=== PATIENT | male | born 1945 | race Caucasian/White ===

== ENCOUNTER → 2021-06-03 14:06 | Outpatient (CLI) | payer MEDICARE, SELFPAY ==
[2021-06-03 14:21] LABS: Basophils # 0.1 K/mm3 (0-0.2); Basophils % 0.7 % (0.1-2.0); Eosinophils # 0.1 K/mm3 (0.0-0.4); Hematocrit 51.9 % (42.0-52.0); Hemoglobin 16.7 g/dL (14.1-18.0); Lymphocytes # 2.3 K/mm3 (0.7-4.5); Lymphocytes % 28.3 % (10-50); Mean Corpuscular HGB Conc 32.2 g/dL (31.8-35.4); Mean Corpuscular Hemoglobin 32.6 pg (27.0-31.2); Mean Corpuscular Volume 101.4 fl (80-94); Mean Platelet Volume 8.5 fl (7.4-10.4); Monocytes # 0.7 K/mm3 (0.1-1.0); Monocytes % 9.1 % (1.7-9.3); Neutrophils % 60.9 % (37.0-80.0); Platelet Count 328 K/mm3 (142-424); Red Blood Count 5.11 M/mm3 (4.60-6.20); Red Cell Distribution Width 14.3 % (11.5-17.5); White Blood Count 8.1 K/mm3 (4.8-10.8)
[2021-06-03 14:22] LABS: Chloride 106 mmol/L (98-107); Potassium 4.8 mmoL/L (3.5-5.1); Sodium 139 mmol/L (136-145)
[2021-06-03 14:24] LABS: Alanine Aminotransferase 11 U/L (12-78); Aspartate Amino Transferase 24 U/L (17-59); Blood Urea Nitrogen 18 mg/dl (9-20); Estimated Glomerular Filt Rate 49 ml/min (>60); GFR (African American) 59 ML/MIN (>60)
[2021-06-03 14:25] LABS: Albumin Level 3.7 g/dl (3.5-5.0); Albumin/Globulin Ratio 1.3 (1.1-1.8); Alkaline Phosphatase 59 U/L (38-126); Anion Gap 12.8 mEq/L (5-15); Bilirubin,Total 0.5 mg/dl (0.2-1.3); Calcium 9.1 mg/dl (8.4-10.2); Carbon Dioxide 25 mmol/L (22.0-30.0); Cholesterol 177 mg/dl (140-200); Globulin 2.8 g/dL (1.3-3.2); Glucose 98 mg/dl (74-100); Total Protein,Serum 6.5 g/dl (6.3-8.2); Triglycerides 148 mg/dl (30-150); VLDL Cholesterol 30 mg/dL (0-40)
[2021-06-03 14:26] LABS: Chol/HDL Ratio 3.3 (1-3.5); HDL Cholesterol 53 mg/dl (40-60)
[2021-06-03 14:56] LABS: Thyroid Stimulating Hormone 1.35 uIU/mL (0.465-4.68)
[2021-06-03 14:57] LABS: Hemoglobin A1C 6.1 % (4.0-6.0)
[2021-06-03 16:26] LABS: Microalbumin < 6.000 mg/L (0-16.7)
[2021-06-03 16:46] LABS: Creatinine,Urine Random 245 mg/dL (Not Estab.)
[2021-06-07 01:09] LABS: Testosterone,Free 8.1 pg/mL (6.6-18.1)
== END ==
PROVIDERS: Visit Provider Family Medicine
DX: E11.9 Type 2 diabetes mellitus without complications (principal); I10 Essential (primary) hypertension; Z87.898 Personal history of other specified conditions
CPT/HCPCS: 80053; 80061; 82043; 82570; 83036; 84402; 84403; 84436; 84443; 85025